=== PATIENT | female | born 1980 | race African-American/Black ===

== ENCOUNTER 2017-01-13 18:58 | Emergency (ER) | payer OTHER ==
[~2017-01-13] VITALS: Ht 175.3 cm; Wt 88.0 kg
[~2017-01-13 18:58] MED LIST: ACYCLOVIR200 MG PO; AVELOX400 MG PO; BENADRYL25 M1 OR; CLEOCIN150 MG PO; FLAGYL500 MG OR; FLEXERIL PO; MINIVELLE0.05 MG PO; NAPROSYN500 MG PO; NO HOME MEDS; NUCYNTA50 MG OR; PERCOCET 5/321 COMBO PO; PHENERGAN25 MG/TAB PO; PRENATA4 OR; PRENATAL1 TA1 PO; PRENATAL3 PO; PROCARDIA10 MG PO; TORADOL PO; TYLENOL325 MG OR; ULTRAM50 M1 PO; ZOFRAN ODT8 MG SL
[2017-01-13] MEDS ORDERED: LEXAPRO10 MG PO (19:15)
[2017-01-13] MEDS ORDERED: ESTARYLLA1 TAB PO (19:17)
[2017-01-13 20:45] VITALS: BP 112/64
== END 2017-01-13 20:45 | disposition home or self-care (01) | DRG 605 ==
LOC: ED 18:58
DX: S00.81XA Abrasion of other part of head, initial encounter (principal); S00.83XA Contusion of other part of head, initial encounter; Y04.2XXA Assault by strike against or bumped into by another person, initial encounter

== ENCOUNTER 2018-04-20 23:07 | Emergency (ER) | payer OTHER ==
[~2018-04-20] VITALS: Ht 175.3 cm; Wt 83.1 kg
[~2018-04-20 23:07] MED LIST changes: +ESTARYLLA1 TAB PO; +LEXAPRO10 MG PO
[2018-04-21 00:14] LABS: HEMATOCRIT 34.9 % (37.0-47.0); HEMOGLOBIN 11.1 g/dl (12.0-16.0); IMMATURE GRANULOCYTES 0.3 % (0.0-5.0); MEAN CELL VOLUME 92.8 fL CALC (80.0-100.0); MEAN CORPUSCULAR HGB 29.5 pG CALC (26.0-32.0); MEAN CORPUSCULAR HGB CONC 31.8 g/L CALC (32.0-36.0); NEUT# 6.43 thou/uL (2.00-7.15); RED BLOOD COUNT 3.76 mill/uL (4.20-5.60); RED CELL DISTRI WIDTH 14.5 % (11.5-15.5)
[2018-04-21 00:24] LABS: ALBUMIN 4.2 g/dL (3.2-5.0); ALKALINE PHOSPHATASE 77 u/l (38-126); ANION GAP 12 (6-22 (CALC)); BILIRUBIN, TOTAL 0.2 mg/dL (0.0-1.4); BUN 12 mg/dL (7-17); BUN/CREATININE RATIO 16 (12-20 (CALC)); CARBON DIOXIDE 24 mmol/l (22-30); CHLORIDE 106 mmol/l (95-108); CREATININE 0.8 mg/dL (0.5-1.0); GFR > 60 ML/MIN (>=60 (CALC)); GFR FOR AFR.AMER. > 60 ML/MIN (>=60 (CALC)); POTASSIUM 3.9 mmol/l (3.5-5.1); SGOT/AST 23 u/l (14-36); SGPT/ALT 31 u/l (9-52); SODIUM 139 mmol/l (137-146); TOTAL PROTEIN 8.2 g/dL (6.3-8.2)
[2018-04-21 00:33] LABS: ACT PARTIAL THROMBO TIME 25.8 SECONDS (20.0-32.5); D-DIMER 1.34 mg/L (0.19-0.60); PROTHROMBIN TIME 11.4 SECONDS (9.0-12.5)
[2018-04-21 00:37] LABS: MYOGLOBIN 18 ng/mL (0 - 62)
[2018-04-21 00:56] LABS: TSH, 3RD GENERATION 1.45 uIU/mL (0.47 - 4.68)
[2018-04-21] MEDS ORDERED: TORADOL PO (04:13)
[2018-04-21 06:44] VITALS: BP 112/63
== END 2018-04-21 06:44 | disposition home or self-care (01) ==
LOC: ED 23:07
PROVIDERS: Family Medicine
DX: R07.89 Other chest pain (principal); R06.02 Shortness of breath; R53.1 Weakness; R07.0 Pain in throat

== ENCOUNTER 2018-08-31 18:38 | Emergency (ER) | payer SELFPAY ==
[~2018-08-31] VITALS: Ht 175.3 cm; Wt 84.1 kg
[~2018-08-31 18:38] MED LIST changes: +FLEXERIL5 M1 PO; +PERCOGESI1 PO
[2018-08-31 19:25] LABS: HEMATOCRIT 32.8 % (37.0-47.0); HEMOGLOBIN 10.8 g/dl (12.0-16.0); IMMATURE GRANULOCYTES 0.2 % (0.0-5.0); MEAN CELL VOLUME 91.4 fL CALC (80.0-100.0); MEAN CORPUSCULAR HGB 30.1 pG CALC (26.0-32.0); MEAN CORPUSCULAR HGB CONC 32.9 g/L CALC (32.0-36.0); NEUT# 5.98 thou/uL (2.00-7.15); RED BLOOD COUNT 3.59 mill/uL (4.20-5.60); RED CELL DISTRI WIDTH 14.7 % (11.5-15.5)
[2018-08-31 19:50] LABS: ALBUMIN 3.9 g/dL (3.2-5.0); ALKALINE PHOSPHATASE 61 u/l (38-126); ANION GAP 14 (6-22 (CALC)); BILIRUBIN, TOTAL 0.7 mg/dL (0.0-1.4); BUN 11 mg/dL (7-17); BUN/CREATININE RATIO 16 (12-20 (CALC)); CARBON DIOXIDE 22 mmol/l (22-30); CHLORIDE 106 mmol/l (95-108); CREATININE 0.7 mg/dL (0.5-1.0); GFR > 60 ML/MIN (>=60 (CALC)); GFR FOR AFR.AMER. > 60 ML/MIN (>=60 (CALC)); POTASSIUM 4.2 mmol/l (3.5-5.1); SGOT/AST 31 u/l (14-36); SODIUM 138 mmol/l (137-146); TOTAL PROTEIN 7.5 g/dL (6.3-8.2)
[2018-08-31] MEDS ORDERED: MEDDOSEPAK PO (20:45)
[2018-08-31] MEDS ORDERED: PEPCID20 MG PO (20:45)
[2018-08-31] MEDS ORDERED: BENADRYL 50MG C50 MG PO (20:45)
[2018-08-31 21:10] VITALS: BP 110/64
== END 2018-08-31 21:05 | disposition home or self-care (01) | DRG 916 ==
LOC: ED 18:38
DX: T78.40XA Allergy, unspecified, initial encounter (principal); R06.02 Shortness of breath

== ENCOUNTER 2021-02-09 13:30 | Emergency (ER) | payer OTHER ==
[~2021-02-09] VITALS: Ht 175.3 cm; Wt 86.2 kg
[~2021-02-09 13:30] MED LIST changes: +BENADRYL 50MG C50 MG PO; +MEDDOSEPAK PO; +PEPCID20 MG PO
[2021-02-09] MEDS ORDERED: METRONIDAZOL500 MG PO ×2 (13:58→14:57)
[2021-02-09] MEDS ORDERED: DOXYCYC MONO100 M2 PO ×2 (13:58→14:57)
[2021-02-09] MEDS ORDERED: DIFLUCAN100 M1 PO (15:10)
[2021-02-09 15:11] VITALS: BP 115/71
== END 2021-02-09 15:11 | disposition home or self-care (01) ==
LOC: ED 13:30
DX: S51.852A Open bite of left forearm, initial encounter (principal); S00.211A Abrasion of right eyelid and periocular area, initial encounter; H11.32 Conjunctival hemorrhage, left eye; M79.641 Pain in right hand; Y04.0XXA Assault by unarmed brawl or fight, initial encounter; Y04.1XXA Assault by human bite, initial encounter; Z88.0 Allergy status to penicillin

== ENCOUNTER 2021-08-24 20:18 | Emergency (ER) | payer OTHER ==
[~2021-08-24] VITALS: Ht 175.3 cm; Wt 72.0 kg
[~2021-08-24 20:18] MED LIST changes: +DIFLUCAN100 M1 PO; +DOXYCYC MONO100 M2 PO; +METRONIDAZOL500 MG PO
[2021-08-24 20:45] LABS: URINE BILIRUBIN - DIPSTICK NEGATIVE (NEGATIVE); URINE BLOOD DIPSTICK NEGATIVE (NEGATIVE); URINE COLOR YELLOW; URINE GLUCOSE - DIPSTICK NEGATIVE (NEGATIVE); URINE KETONE NEGATIVE (NEGATIVE); URINE LEUK ESTERASE NEGATIVE (NEGATIVE); URINE PROTEIN - DIPSTICK 30 mg/dL (NEG-TRACE); URINE SPECIFIC GRAVITY >=1.030; URINE UROBILINOGEN - DIPSTICK 0.2 E.U./dL (0.2)
[2021-08-24 20:48] LABS: URINE NITRITE - DIPSTICK NEGATIVE (Negative)
[2021-08-24 21:00] LABS: URINE RBC 0-2 RBC/hpf (0-5); URINE SQUAMOUS EPITHELIAL CELL FEW EPI/hpf (0-FEW); URINE WBC 0-2 WBC/hpf (0-5)
[2021-08-24] MEDS ORDERED: NAPROXEN500 MG PO (23:25)
[2021-08-24] MEDS ORDERED: CYCLOBENZAPRINE10 MG PO (23:25)
[2021-08-24 23:40] VITALS: BP 120/75
[2021-08-26] MEDS ORDERED: CLEOCIN300 MG PO (01:12)
== END 2021-08-24 23:40 | disposition home or self-care (01) ==
LOC: ED 20:18
PROVIDERS: Emergency Medicine
DX: S00.83XA Contusion of other part of head, initial encounter (principal); S21.259A Open bite of unspecified back wall of thorax without penetration into thoracic cavity, initial encounter; Y04.2XXA Assault by strike against or bumped into by another person, initial encounter; Y04.1XXA Assault by human bite, initial encounter; Y92.009 Unspecified place in unspecified non-institutional (private) residence as the place of occurrence of the external cause

== ENCOUNTER 2022-02-06 16:51 | Emergency (ER) | payer OTHER ==
[~2022-02-06] VITALS: Ht 175.3 cm; Wt 82.0 kg
[~2022-02-06 16:51] MED LIST changes: +CLEOCIN300 MG PO; +CYCLOBENZAPRINE10 MG PO; +NAPROXEN500 MG PO
[2022-02-06] MEDS ORDERED: MEDDOSEPAK PO (17:15)
[2022-02-06 18:09] VITALS: BP 110/65
[2022-02-06 18:30] VITALS: BP 104/67
[2022-02-06 18:45] VITALS: BP 93/53
[2022-02-06 19:13] VITALS: BP 93/53
== END 2022-02-06 19:18 | disposition home or self-care (01) ==
LOC: ED 16:51
DX: L30.9 Dermatitis, unspecified (principal)

== ENCOUNTER 2022-05-21 18:57 | Emergency (ER) | payer OTHER | END 2022-05-21 20:17 | disposition left against medical advice (07) | DRG 951 | LOC: ED 18:57 → LWOBS 20:17 | DX: Z53.21 Procedure and treatment not carried out due to patient leaving prior to being seen by health care provider (principal) ==

== ENCOUNTER 2024-07-11 19:31 | Emergency (ER) | payer SELFPAY ==
[2024-07-11] VITALS (7 sets, daily range): BP systolic 107–116; BP diastolic 56–74
[~2024-07-11] VITALS: Ht 175.3 cm; Wt 81.0 kg
[2024-07-11 21:24] LABS: HEMATOCRIT 34.4 % (37.0-47.0); HEMOGLOBIN 10.8 g/dl (12.0-16.0); MEAN CORPUSCULAR HGB 29.5 pG CALC (26.0-32.0); MEAN CORPUSCULAR HGB CONC 31.4 g/dL CAL (32.0-36.0); RED BLOOD COUNT 3.66 mill/uL (4.20-5.60); RED CELL DISTRI WIDTH 14.5 % (11.5-15.5)
== END 2024-07-11 22:30 | disposition home or self-care (01) | DRG 153 ==
LOC: ED 19:31
PROVIDERS: Family Medicine
DX: J06.9 Acute upper respiratory infection, unspecified (principal); Z20.822 Contact with and (suspected) exposure to COVID-19

== ENCOUNTER 2024-11-16 10:15 | Emergency (ER) | payer OTHER ==
[2024-11-16] VITALS (9 sets, daily range): BP systolic 104–126; BP diastolic 62–91
[~2024-11-16] VITALS: Ht 175.3 cm; Wt 86.1 kg
[2024-11-16 10:59] LABS: URINE BILIRUBIN - DIPSTICK Negative (NEGATIVE); URINE BLOOD DIPSTICK Negative (NEGATIVE); URINE GLUCOSE - DIPSTICK Negative (NEGATIVE); URINE KETONE Negative (NEGATIVE); URINE LEUK ESTERASE Negative (NEGATIVE); URINE NITRITE - DIPSTICK Negative (Negative); URINE PH 7.5 (4.5-8.0); URINE PROTEIN - DIPSTICK 30 mg/dL (NEG-TRACE); URINE UROBILINOGEN - DIPSTICK 0.2 E.U./dL (0.2)
[2024-11-16 11:02] LABS: URINE COLOR Yellow
[2024-11-16 11:11] LABS: URINE AMORPH SEDIMENT MANY hpf (NONE-FEW); URINE RBC 0-2 RBC/hpf (0-5); URINE SQUAMOUS EPITHELIAL CELL FEW EPI/hpf (0-FEW); URINE WBC 0-2 WBC/hpf (0-5)
[2024-11-16 11:13] LABS: ALBUMIN 3.9 g/dL (3.2-5.0); ALKALINE PHOSPHATASE 57 u/l (38-126); ANION GAP 10 (6-22 (CALC)); BILIRUBIN, TOTAL 0.7 mg/dL (0.02-1.3); BUN 12 mg/dL (7-17); BUN/CREATININE RATIO 17 (12-20 (CALC)); CARBON DIOXIDE 24 mmol/l (22-30); CHLORIDE 109 mmol/l (95-108); CREATININE 0.7 mg/dL (0.5-1.0); ESTIMATED GFR 109 ML/MIN (>=90 (CALC)); POTASSIUM 4.1 mmol/l (3.5-5.1); SGOT/AST 44 u/l (14-36); SODIUM 139 mmol/l (137-146); TOTAL PROTEIN 7.6 g/dL (6.3-8.2)
[2024-11-16 11:14] LABS: BASO% 0.5 % (0-3); EOS% 2.3 % (0-8); HEMATOCRIT 31.1 % (37.0-47.0); HEMOGLOBIN 9.6 g/dl (12.0-16.0); IMMATURE GRANULOCYTES 0.2 % (0.0-5.0); LYMPH% 24.8 % (15-41); MEAN CELL VOLUME 91.5 fL CALC (80.0-100.0); MEAN CORPUSCULAR HGB 28.2 pG CALC (26.0-32.0); MEAN CORPUSCULAR HGB CONC 30.9 g/dL CAL (32.0-36.0); NEUT# 4.04 thou/uL (2.00-7.15); NEUT% 65.2 % (42-76); RED BLOOD COUNT 3.4 mill/uL (4.20-5.60); RED CELL DISTRI WIDTH 15.6 % (11.5-15.5)
== END 2024-11-16 15:05 | disposition home or self-care (01) | DRG 313 ==
LOC: ED 10:15
PROVIDERS: Family Medicine
DX: R07.9 Chest pain, unspecified (principal)